=== PATIENT | female | born 1985 | race Caucasian/White ===

== ENCOUNTER → 2023-10-12 11:12 | Outpatient (REF) | payer BC, SELFPAY | LOC: PNTC 11:12 | PROVIDERS: ATTENDING PHYSICIAN Obstetrics & Gynecology | DX: O09.529 Supervision of elderly multigravida, unspecified trimester (principal) | CPT/HCPCS: 76816 ==

== ENCOUNTER 2023-11-10 20:24 | Inpatient (IN) | payer BC, SELFPAY ==
[2023-11-10 21:43] VITALS: BP 129/66; BMI 36.8
[2023-11-10 21:46] LABS: % Basophils 0.6 % (0-2); % Eosinophils 0.9 % (0-6); % Immature Granulocytes 0.6 % (0-0.5); % Monocytes 6.6 % (1.7-9.3); % Neutrophils 71.3 % (42.2-75.2); Absolute Basophils 0.1 10^3/uL (0-0.2); Absolute Eosinophils 0.1 10^3/uL (0-0.7); Absolute Immature Granulocytes 0.1 10^3/uL (0-0.05); Absolute Lymphocytes 2.5 10^3/uL (1.2-3.4); Absolute Monocytes 0.8 10^3/uL (0.1-0.6); Absolute Neutrophils 9.1 10^3/uL (1.4-6.5); Hematocrit 28.9 % (37.0-47.0); Hemoglobin 9.5 g/dL (12.0-16.0); Mean Corp Hgb Conc. 32.9 g/dL (33.0-37.0); Mean Corpuscular Hgb 24.7 pg (27.0-31.0); Mean Corpuscular Volume 75.3 fL (81.0-99.0); Mean Platelet Volume 9.5 fL (7.4-10.4); Nucleated Red Blood Cells % 0 %; Platelet Count 243 10^3/uL (130-400); Red Blood Cell Count 3.84 10^6/uL (4.20-5.40); Red Cell Dist. Width 14.6 % (11.5-14.5); White Blood Cell Count 12.7 10^3/uL (4.8-10.8)
[2023-11-10] MEDS: FENTANYL/BUPIVACAINE 100 EPIDURAL (22:30)
[2023-11-10] MEDS: SUBLIMAZE 100 MCG EPIDURAL ×2 (22:30→23:25)
[2023-11-11] MEDS: FENTANYL/BUPIVACAINE 100 EPIDURAL (06:37)
[2023-11-11] MEDS: MOTRIN 600 MG PO ×2 (14:31→20:46)
[2023-11-12] MEDS: MOTRIN 600 MG PO ×4 (04:20→23:33)
[2023-11-12 05:50] LABS: Hemoglobin 8.9 g/dL (12.0-16.0)
[2023-11-12] MEDS: SENOKOT-S 1 TABLET PO (09:43)
[2023-11-12 11:54] LABS: Syphilis/T. pallidum Ab Reflex Negative (Negative)
[2023-11-12] MEDS: FEOSOL 325 MG PO ×2 (14:10→20:32)
[2023-11-13] MEDS: MOTRIN 600 MG PO (06:05)
[2023-11-13] MEDS: FEOSOL 325 MG PO (09:19)
[2023-11-13] MEDS: SENOKOT-S 1 TABLET PO (09:19)
== END 2023-11-13 13:16 | disposition home or self-care (01) | DRG 807 ==
LOC: LDRP 20:24
PROVIDERS: Obstetrics & Gynecology; ADMITTING PHYSICIAN Obstetrics & Gynecology
PROC: 10907ZC Drainage of Amniotic Fluid, Therapeutic from Products of Conception, Via Natural or Artificial Opening (ICD-10-PCS; 2023-11-11)
PROC: 10E0XZZ Delivery of Products of Conception, External Approach (ICD-10-PCS; 2023-11-11)
PROC: 0HQ9XZZ Repair Perineum Skin, External Approach (ICD-10-PCS; 2023-11-11)
DX: O98.32 Other infections with a predominantly sexual mode of transmission complicating childbirth (principal); Z37.0 Single live birth; O70.0 First degree perineal laceration during delivery; Z3A.39 39 weeks gestation of pregnancy; A63.0 Anogenital (venereal) warts; Z98.82 Breast implant status; O76 Abnormality in fetal heart rate and rhythm complicating labor and delivery; O90.81 Anemia of the puerperium; D64.9 Anemia, unspecified
CPT/HCPCS: 85014; 85018; 85025; 86780; 86850; 86900; 86901